=== PATIENT | female | born 1990 | race Caucasian/White ===

== ENCOUNTER 2019-02-13 09:26 | Outpatient (CLI) | payer OTHER ==
[2019-02-13 11:23] LABS: Basophils % (A) 0 %; Eosinophils # (A) 0.2 k/uL (0-0.7); Eosinophils % (A) 2 %; HCT 35.3 % (34.0-46.0); HGB 11.1 gm/dL (11.4-16.0); Hypochromasia Slight; Lymphocytes # (A) 1.6 k/uL (1.0-4.8); Lymphocytes % (A) 16 %; MCH 20.5 pg (25.0-35.0); MCHC 31.4 g/dL (31.0-37.0); MCV 65.3 fL (80.0-100.0); Mean Platelet Volume 5.8; Microcytosis Marked; Monocytes # (A) 0.6 k/uL (0-1.0); Monocytes % (A) 6 %; Neutrophils # (A) 7.3 k/uL (1.3-7.7); Neutrophils % (A) 75 %; Platelet Count 286 k/uL (150-450); RBC 5.41 m/uL (3.80-5.40); RDW 14.6 % (11.5-15.5); WBC 9.8 k/uL (3.8-10.6)
[2019-02-13 11:42] LABS: Uric Acid 5.1 mg/dL (3.7-7.4)
== END 2019-02-13 12:31 | disposition home or self-care (01) ==
LOC: FBPOP 09:26
PROVIDERS: ATTEND Obstetrics & Gynecology
DX: O26.893 Other specified pregnancy related conditions, third trimester (principal); Z3A.37 37 weeks gestation of pregnancy
CPT/HCPCS: 59025; 84112; 84450; 84460; 84550; 85025; G0463; 99215

== ENCOUNTER → 2019-02-15 | Outpatient (CLI) | payer OTHER | END | disposition home or self-care (01) | LOC: LABWHC1 12:19 | PROVIDERS: ATTEND Obstetrics & Gynecology | DX: O13.9 Gestational [pregnancy-induced] hypertension without significant proteinuria, unspecified trimester (principal) | CPT/HCPCS: 36415; 82575 ==

== ENCOUNTER 2019-02-18 18:30 | Inpatient (IN) | payer OTHER ==
[~2019-02-18 18:30] MED LIST: ROPIVACAINE 5MG/ML 20ML VIAL ONE; SODIUM CHLORIDE 0.9% 100 ML BAG ONE; fentaNYL (PF) 50 MCG/ML 5 ML AMP ONE
[2019-02-18] MEDS ORDERED: DINOPROSTONE 10 MG INSERT.ER VAGINAL ONE (19:39)
[2019-02-18] MEDS ORDERED: BUTORPHANOL 1 MG/ML 1 ML VIAL IV PRN (19:39)
[2019-02-18] MEDS ORDERED: ZOLPIDEM 5 MG TAB PO PRN (19:39)
[2019-02-18] MEDS ORDERED: CARBOPROST TROMETHAMINE 250 MCG/ML 1 ML AMP IM PRN (20:01)
[2019-02-18] MEDS ORDERED: LIDOCAINE 0.5% (PF) 5 MG/ML (50 ML SDV) SQ PRN (20:01)
[2019-02-18] MEDS ORDERED: METHYLERGONOVINE 0.2 MG/ML 1 ML AMP IM PRN (20:01)
[2019-02-18] MEDS ORDERED: TERBUTALINE 1 MG/ML VIAL SQ PRN (20:01)
[2019-02-18] MEDS ORDERED: OXYTOCIN 10 UNIT/ML 1 ML VIAL IM PRN (20:01)
--- NOTE | 2019-02-18 20:14 | P.HPOB ---
History of Present Illness H&P Date: 02/18/19 Chief Complaint: 37-4/7 weeks, preeclampsia The patient is a 28-year-old rubber 1 para 0 admitted at 37-4/7 weeks by last menstrual period and confirmed by 19 week ultrasound. She is admitted with recent significantly increasing blood pressures and otherwise normal laboratory workup. She was found in the office today to have a blood pressure in the range of 148/94. Nonstress testing is entirely reassuring. Her cervix has been found to be unfavorable at 1 cm dilation, 50% effacement, with the vertex in presentation at -3 station. Her has, to this point, been otherwise uncomplicated and group B strep status is negative. She did have an ultrasound demonstrating growth at the 50th percentile around 35 weeks of gestation. Obstetrical history: 1 para 0 with current statistics listed above. EDC of 03/06/2019 was established by last menstrual period and confirmed by 19 week ultrasound. Laboratory workup demonstrates a blood type of B+ with a negative antibody screen. Rubella status is immune. The remainder of the laboratory workup was within normal limits. One hour Glucola was normal and group B strep status is negative. Gynecologic history: Unremarkable with no history of any infections to include STDs. Review of Systems Review of systems is confined to history of present illness. Past Medical History Past Medical History: Hypertension Additional Past Medical History / Comment(s): Anemia History of Any Multi-Drug Resistant Organisms: None Reported Additional Past Surgical History / Comment(s): [place] teeth removal Past Anesthesia/Blood Transfusion Reactions: No Reported Reaction Past Psychological History: No Psychological Hx Reported Smoking Status: Former smoker Past Alcohol Use History: None Reported Past Drug Use History: None Reported - Past Family History Mother Family Medical History: Chest Pain / Angina, CVA/TIA, Diabetes Mellitus, Hyperlipidemia, Hypertension, Renal Disease Medications and Allergies Home Medications Medication Instructions Recorded Confirmed Type Iron 18 mg PO HS 02/13/19 02/18/19 History Pnv No.95/Ferrous Fum/Folic AC 1 each PO HS 02/13/19 02/18/19 History [ Multivitamin Tablet] Allergies Allergy/AdvReac Type Severity Reaction Status Date / Time No Known Allergies Allergy Verified 02/18/19 19:19 Exam Vital Signs Temp Pulse Resp BP Pulse Ox 02/18/19 19:18 98.7 F 105 H 16 175/93 99 Intake and Output 02/18/19 02/18/19 02/18/19 06:59 14:59 22:59 Other: Weight 99.79 kg In general, this is a well-developed, well-nourished white female in no acute distress. Her heart has a regular rhythm and rate without murmur. Her lungs are clear to auscultation bilaterally in all thomas. Her abdomen is gravid, nondistended, has normal active bowel sounds, soft, nontender, and without any palpable masses aside from the uterine fundus. Her extremities are without any cyanosis, clubbing, or significant edema and are nontender to palpation bilate rally. Digital cervical examination on straights her cervix to be 1 cm dilated, 50% effaced, the vertex in presentation at -3 station. Assessment and Plan (1) induced hypertension Current Visit: Yes Status: Acute Code(s): O13.9 - GESTATIONAL HTN W/O SIGNIFICANT PROTEINURIA, UNSP TRIMESTER SNOMED Code(s): 63473793 (2) Term Current Visit: Yes Status: Acute Code(s): Z34.90 - ENCNTR FOR SUPRVSN OF NORMAL , UNSP, UNSP TRIMESTER SNOMED Code(s): 73628753 Plan: The patient is admitted for induction of labor. As her cervix is unfavorable, she has had a Cervidil placed in the posterior fornix for cervical ripening with the intention of Pitocin augmentation or induction to begin tomorrow morning as needed. The risks and complications of the procedure including the risk for hyperstimulation have been thoroughly discussed. She has understood this and agreed to proceed. Additionally, I will draw labs for preeclampsia to include liver function tests, platelet count, uric acid, as well as PT and PTT. She is a good candidate for either IV or epidural analgesia pending the outcome of labs. Close attention will be paid her blood pressures and they will be managed as needed.
[2019-02-18] MEDS: LACTATED RINGERS 1,000 ML IV SCH (20:15)
[2019-02-18 20:57] LABS: Basophils % (A) 0 %; Eosinophils # (A) 0.2 k/uL (0-0.7); Eosinophils % (A) 2 %; HCT 35.7 % (34.0-46.0); Hypochromasia Slight; Lymphocytes # (A) 1.7 k/uL (1.0-4.8); Lymphocytes % (A) 14 %; MCH 20.1 pg (25.0-35.0); MCHC 30.9 g/dL (31.0-37.0); MCV 65.2 fL (80.0-100.0); Microcytosis Marked; Monocytes # (A) 0.7 k/uL (0-1.0); Monocytes % (A) 5 %; Neutrophils # (A) 9.2 k/uL (1.3-7.7); Neutrophils % (A) 77 %; Platelet Count 244 k/uL (150-450); RBC 5.48 m/uL (3.80-5.40); RDW 14.8 % (11.5-15.5)
[2019-02-18 21:07] LABS: Uric Acid 5.5 mg/dL (3.7-7.4)
[2019-02-18 21:19] LABS: INR 0.8 (<1.2); Partial Thromboplastin Time 22.6 sec (22.0-30.0); Prothrombin Time 9.4 sec (9.0-12.0)
[2019-02-18] MEDS ORDERED: LABETALOL 200 MG TAB PO STA (22:48)
[2019-02-18] MEDS ORDERED: LABETALOL 100 MG TAB PO STA (22:57)
[2019-02-19] MEDS: OXYTOCIN 30 UNITS/500 ML NS 30 UNIT in SALINE 1 500ML.BAG IV SCH (06:38)
[2019-02-19] MEDS ORDERED: LABETALOL 100 MG TAB PO STA ×2 (07:35→19:16)
[2019-02-19] MEDS: LACTATED RINGERS 1,000 ML IV SCH ×3 (09:36→22:20)
[2019-02-19] MEDS ORDERED: SIMETHICONE 80 MG CHEWABLE PO PRN (22:16)
[2019-02-19] MEDS ORDERED: HYDROcodone/APAP 5-325MG 1 EACH TAB PO PRN (22:16)
[2019-02-19] MEDS ORDERED: HYDROcodone/APAP 7.5-325MG 1 EACH TAB PO PRN (22:16)
[2019-02-19] MEDS ORDERED: BENZOCAINE/MENTHOL SPRAY 1 GM/SPRAY AEROSOL TOPICAL PRN (22:16)
[2019-02-19] MEDS ORDERED: WITCH HAZEL 1 EACH MED..PAD TOPICAL PRN (22:16)
[2019-02-19] MEDS ORDERED: LANOLIN CREAM 5 GM TUBE TOPICAL PRN (22:16)
[2019-02-19] MEDS ORDERED: HYDROCORTISONE 2.5% RECTAL CREAM 30 GM TUBE RECTAL PRN (22:16)
[2019-02-19] MEDS ORDERED: diphenhydrAMINE 25 MG CAP PO PRN (22:16)
[2019-02-19] MEDS ORDERED: diphenhydrAMINE 50 MG/ML 1 ML VIAL IVP PRN ×2 (22:16)
[2019-02-19] MEDS ORDERED: ACETAMINOPHEN TAB 325 MG TAB PO PRN (22:16)
[2019-02-19] MEDS ORDERED: IBUPROFEN 600 MG TAB PO PRN (22:16)
[2019-02-19] MEDS ORDERED: diphenhydrAMINE 50 MG CAP PO PRN (22:16)
--- NOTE | 2019-02-19 22:23 | P.PROBDLV ---
Vaginal Delivery Note - . Vaginal Delivery Note: The patient is a 28-year-old 1 para 0 admitted initially at 37-4/7 weeks for cervical ripening secondary to an unfavorable cervix in the face of fairly significant increasing induced hypertension with no evidence of superimposed preeclampsia. Her had been uncomplicated until the recent onset of increasing blood pressures and was found in the office with blood pressures in the range of mid 140s to 160s over 90-100. Given the fact that she was full-term, the option was taken to affect delivery. She was brought to the hospital where a Cervidil was placed and left in place overnight. She did make adequate cervical change to allow for artificial rupture of membranes for clear fluid after having started Pitocin augmentation. She made fairly slow progress through the latent phase of labor and had an epidural catheter placed around the onset of the active phase of labor. She continued to make initially fairly slow progress but the fetus was thought to be in a slight malposition. At approximately 7 cm of dilation, she then progressed fairly quickly to complete and pushed over the course of approximately 1 hour to a normal spontaneous vaginal delivery of a viable 7 lbs. 4 oz. baby boy with Apgars of 8 at 1 minute and 9 at 5 minutes delivered in the right occiput anterior position. The placenta was delivered spontaneously, intact, and grossly normal with a grossly normal three-vessel cord inserted approximate 3 cm from the margin of the placental disc. She did require 3 doses of labetalol 100 mg orally from the beginning of her cervical ripening through the course of her labor to control blood pressures. There was a second-degree midline perineal laceration which was noted and repaired in standard fashion using 3-0 chromic catgut without difficulty. Estimated blood loss for the case was approximate 400 mL. There were no complications. All sponge, instrument, and needle counts were correct. Both mother and infant are resting comfortably in recovery.
[2019-02-19] MEDS ORDERED: OXYTOCIN 20 UNITS/1000 ML NS 1,000 ML IV SCH (23:00)
[2019-02-20] MEDS: OXYTOCIN 30 UNITS/500 ML NS 30 UNIT in SALINE 1 500ML.BAG IV SCH (02:24)
[2019-02-20] MEDS: SENNOSIDES-DOCUSATE SODIUM 1 EACH TAB PO SCH (07:42)
[2019-02-20 08:24] LABS: Basophils % (A) 0 %; Eosinophils # (A) 0.1 k/uL (0-0.7); Eosinophils % (A) 1 %; HCT 24.1 % (34.0-46.0); Lymphocytes # (A) 2.3 k/uL (1.0-4.8); Lymphocytes % (A) 13 %; MCH 21.2 pg (25.0-35.0); MCHC 33.1 g/dL (31.0-37.0); Microcytosis Marked; Monocytes % (A) 5 %; Neutrophils # (A) 14.9 k/uL (1.3-7.7); Neutrophils % (A) 80 %; Platelet Count 283 k/uL (150-450); RBC 3.77 m/uL (3.80-5.40); RDW 14.9 % (11.5-15.5); WBC 18.6 k/uL (3.8-10.6)
--- NOTE | 2019-02-20 11:30 | P.PNOBGVD ---
Subjective - Subjective Patient reports: Reports appetite normal, Reports voiding normally, Reports pain well controlled, Reports ambulating normally : doing well, nursing well Objective - Latest Vital Signs Latest vital signs: Vital Signs Temp Pulse Resp BP Pulse Ox 02/20/19 08:00 98.8 F 103 H 15 155/73 97 02/20/19 04:00 98.8 F 107 H 16 126/70 96 02/20/19 00:05 99.1 F 89 15 135/66 02/19/19 23:35 98.9 F 106 H 15 138/74 02/19/19 23:05 99.0 F 106 H 16 139/65 02/19/19 22:50 110 H 16 134/69 02/19/19 22:35 110 H 16 139/74 02/19/19 22:20 99.5 F 112 H 16 126/66 02/19/19 22:05 98.3 F 114 H 16 127/70 Intake and Output 02/19/19 02/20/19 02/20/19 22:59 06:59 14:59 Other: # Voids 1 - Exam Extremities: Present: normal, edema (1+ bilateral lower extremity edema to mid calf) Abdomen: Present: normal appearance, soft Uterus: Present: normal, firm (The uterine fundus is tonic and nontender below the umbilicus.) - Labs Labs: Abnormal Lab Results - Last 24 Hours (Table) 02/20/19 Range/Units 07:50 WBC 18.6 H (3.8-10.6) k/uL RBC 3.77 L (3.80-5.40) m/uL Hgb 8.0 L D (11.4-16.0) gm/dL Hct 24.1 L (34.0-46.0) % MCV 64.0 L (80.0-100.0) fL MCH 21.2 L (25.0-35.0) pg Neutrophils # 14.9 H (1.3-7.7) k/uL Assessment and Plan (1) induced hypertension Current Visit: Yes Status: Acute Code(s): O13.9 - GESTATIONAL HTN W/O SIGNIFICANT PROTEINURIA, UNSP TRIMESTER SNOMED Code(s): 41636664 (2) Term Current Visit: Yes Status: Acute Code(s): Z34.90 - ENCNTR FOR SUPRVSN OF NORMAL , UNSP, UNSP TRIMESTER SNOMED Code(s): 28128623 (3) Normal spontaneous vaginal delivery Current Visit: Yes Status: Acute Code(s): O80 - ENCOUNTER FOR FULL-TERM UNCOMPLICATED DELIVERY SNOMED Code(s): 75771663 Plan: Continue routine care. Blood pressures have remained in a range that does not require further treatment at this time. I will however keep her in the hospital for another 24 hours to further monitor her blood pressures prior to discharge given the degree of lability noted during labor. I would anticipate discharge home tomorrow.
[2019-02-21] MEDS: SENNOSIDES-DOCUSATE SODIUM 1 EACH TAB PO SCH ×2 (02:11→13:04)
[2019-02-21 10:09] VITALS: PULSE 110; RESP 18
[2019-02-21 10:10] VITALS: BP 150/96; TEMP 98.4
--- NOTE | 2019-02-21 11:08 | P.DS ---
Providers Date of admission: 02/18/19 18:59 Expected date of discharge: 02/21/19 Attending physician: Rigoberto Herrera Primary care physician: Stated None - Discharge Diagnosis(es) (1) induced hypertension Current Visit: Yes Status: Acute (2) Term Current Visit: Yes Status: Acute (3) Normal spontaneous vaginal delivery Current Visit: Yes Status: Acute Hospital Course: The patient is a 28-year-old 1 para 0 admitted at 37-4/7 weeks by good dating parameters. She is admitted for Cervidil cervical ripening secondary to an unfavorable cervix in the face of -induced hypertension. She had Cervidil placed and did have enough cervical change to allow for an official rupture of membranes the following morning at which time Pitocin augmentation was also started. She made progress through the course of labor relatively slow fashion but ultimately did progress to complete where after she pushed to a normal spontaneous vaginal delivery of a viable 7 lbs. 4 oz. baby boy with Apgars of 8 at 1 minute and 9 at 5 minutes. Her course was unremarkable with vital signs remaining stable and her temperature was afebrile throughout. Blood pressures remained in an area that was not deemed treatable. She therefore was discharged home on day #2 to follow-up in the office in 6 weeks' time routinely. Discharge instructions included calling for any significantly increased bleeding or foul-smelling lochia, significantly increased fever abdominal pain, perineal complaints, breast complaints, or anything else that concerned her. She was additionally instructed to have nothing in the vagina for at least 6 weeks time to include intercourse. She understood her instructions and agrees to follow up as noted above. Discharge medications included only [id number] analgesic pain medications as well as continued vitamins as she has opted to breast-feed. Maternal blood type is B+ and rubella status is immune. Plan - Discharge Summary New Discharge Prescriptions: No Action Pnv No.95/Ferrous Fum/Folic AC [ Multivitamin Tablet] 1 each PO HS Iron 18 mg PO HS Discharge Medication List Iron 18 mg PO HS 02/13/19 [History] Pnv No.95/Ferrous Fum/Folic AC [ Multivitamin Tablet] 1 each PO HS 02/13/19 [History] Follow up Appointment(s)/Referral(s): Rigoberto Herrera MD [STAFF PHYSICIAN] - 6 Weeks Discharge Disposition: HOME SELF-CARE
== END 2019-02-21 12:15 | disposition home or self-care (01) | DRG 807 ==
LOC: 4FBP 18:59
PROVIDERS: ADMIT Obstetrics & Gynecology; ATTEND Obstetrics & Gynecology
PROC: 3E0P7VZ Introduction of Hormone into Female Reproductive, Via Natural or Artificial Opening (ICD-10-PCS; 2019-02-18)
PROC: 10E0XZZ Delivery of Products of Conception, External Approach (ICD-10-PCS; principal; 2019-02-19)
PROC: 0KQM0ZZ Repair Perineum Muscle, Open Approach (ICD-10-PCS; 2019-02-19)
PROC: 00HU33Z Insertion of Infusion Device into Spinal Canal, Percutaneous Approach (ICD-10-PCS; 2019-02-19)
PROC: 3E0R3BZ Introduction of Anesthetic Agent into Spinal Canal, Percutaneous Approach (ICD-10-PCS; 2019-02-19)
DX: O13.4 Gestational [pregnancy-induced] hypertension without significant proteinuria, complicating childbirth (principal); Z37.0 Single live birth; O70.1 Second degree perineal laceration during delivery; Z3A.37 37 weeks gestation of pregnancy; Z87.891 Personal history of nicotine dependence; Z83.3 Family history of diabetes mellitus; Z82.49 Family history of ischemic heart disease and other diseases of the circulatory system; Z82.3 Family history of stroke; Z84.1 Family history of disorders of kidney and ureter
CPT/HCPCS: 84450; 84460; 84550; 85025; 85610; 85730; 86850; 86900; 86901; 88307

== ENCOUNTER → 2021-07-19 | Outpatient (CLI) | payer OTHER ==
--- NOTE | 2021-07-20 07:51 | CA ---
Transthoracic Echo Report Name: Kailyn Garcia Age: 30 Gender: F : 1990 Exam Date: 07/19/2021 15:37 Exam Location: [facility] Ht (in): 66 Wt (lb): 189 Ordering Physician: Nelson Rosales MD Attending/Referring Phys: Nelson Rosales MD Ict Educator Mirela Dennis RDCS Procedure CPT: Indications: I10 HTN Cardiac Hx: No cardiac Hx Technical Quality: Good Contrast 1: Total Dose (mL): Contrast 2: Total Dose (mL): MEASUREMENTS (Male / Female) Normal Values 2D ECHO LV Diastolic Diameter PLAX 3.8 cm 4.2 - 5.9 / 3.9 - 5.3 cm LV Systolic Diameter PLAX 2.7 cm IVS Diastolic Thickness 1.0 cm 0.6 - 1.0 / 0.6 - 0.9 cm LVPW Diastolic Thickness 1.0 cm 0.6 - 1.0 / 0.6 - 0.9 cm LV Relative Wall Thickness 0.5 RV Internal Dim ED PLAX 2.9 cm LA Systolic Diameter LX 2.3 cm 3.0 - 4.0 / 2.7 - 3.8 cm LA Volume 29.0 cm??? 18 - 58 / 22 - 52 cm??? M-MODE Aortic Root Diameter MM 2.7 cm MV E Point Septal Separation 0.4 cm AV Cusp Separation MM 2.4 cm DOPPLER AV Peak Velocity 159.4 cm/s AV Peak Gradient 10.2 mmHg MV Area PHT 3.9 cm??? Mitral E Point Velocity 97.1 cm/s Mitral A Point Velocity 123.0 cm/s Mitral E to A Ratio 0.8 MV Deceleration Time 195.9 ms MV E' Velocity 14.7 cm/s Mitral E to MV E' Ratio 6.6 FINDINGS Left Ventricle Left ventricular ejection fraction is estimated at 60-65 %. Normal Left ventricular size, wall thickness, systolic function with no obvious regional wall motion abnormalities. Normal Left ventricular diastolic filling pattern. Right Ventricle Normal right ventricular size and function. Right Atrium Normal right atrial size. Left Atrium Normal left atrial size. Mitral Valve Structurally normal mitral valve. No mitral stenosis, regurgitation or prolapse. Aortic Valve Trileaflet aortic valve. Tricuspid Valve Structurally normal tricuspid valve. Pulmonic Valve Trace pulmonic regurgitation. Pericardium Normal pericardium. Aorta Normal size aortic root and proximal ascending aorta. CONCLUSIONS Normal LV systolic function. Normal valves Previewed by: Dr. Sharath Ponce MD (Electronically Signed) Final Date: 20 Jul 2021 07:50
== END | disposition home or self-care (01) ==
LOC: RADECHMAIN 15:33
PROVIDERS: ATTEND Family Medicine
DX: I10 Essential (primary) hypertension (principal)
CPT/HCPCS: 93306

== ENCOUNTER → 2022-07-21 | Outpatient (CLI) | payer OTHER ==
[2022-07-21 21:25] LABS: T4, Free (Free Thyroxine) 1.51 ng/dL (0.800-1.800)
== END | disposition home or self-care (01) ==
LOC: LABWHC1 07-20 13:02
PROVIDERS: ATTEND Internal Medicine Endocrinology, Diabetes & Metabolism
DX: E03.9 Hypothyroidism, unspecified (principal)
CPT/HCPCS: 36415; 84439; 84443; 84480

== ENCOUNTER → 2022-09-19 | Outpatient (CLI) | payer OTHER ==
[2022-09-20 03:12] LABS: Blood Urea Nitrogen 6.8 mg/dL (9.0-27.0); Calcium 9.3 mg/dL (8.7-10.3); Carbon Dioxide 21.8 mmol/L (21.6-31.8); Chloride 104 mmol/L (96-109); Glucose 69 mg/dL (70-110); Potassium 4.1 mmol/L (3.5-5.5); Sodium 137 mmol/L (135-145); T4, Free (Free Thyroxine) 1.25 ng/dL (0.80-1.80)
[2022-09-20 03:41] LABS: HCT 32.2 % (37.2-46.3); HGB 9.8 d/dL (12.0-15.0); MCH 19.5 pg (27.0-32.0); MCHC 30.4 d/dL (32.0-37.0); Mean Platelet Volume 10.3 FL (9.5-12.2); NRBC Per 100 WBC 0 X 10*3/uL (0.00-0.01); Platelet Count 345 X 10*3/uL (140-440); RBC 5.03 X 10*6/uL (4.10-5.20); WBC 10.04 X 10*3/uL (4.50-10.00)
== END | disposition home or self-care (01) ==
LOC: LABWHC1 14:55
PROVIDERS: ATTEND Internal Medicine Endocrinology, Diabetes & Metabolism
DX: E03.9 Hypothyroidism, unspecified (principal)
CPT/HCPCS: 36415; 80048; 82306; 82607; 84439; 84443; 84480; 85027

== ENCOUNTER → 2022-10-25 | Outpatient (CLI) | payer OTHER ==
--- NOTE | 2022-10-25 14:52 | US ---
EXAMINATION TYPE: US thyroid st tissue head/neck DATE OF EXAM: 10/25/2022 COMPARISON: NONE CLINICAL INDICATION: Female, 32 years old with history of E03.9; Hashimotos, on thyroid medication GLAND SIZE: Right Lobe: 6.0 x 1.9 x 2.5 cm Overall Parenchyma: diffusely heterogeneous Left Lobe: 5.2 x 1.1 x 1.9 cm Overall Parenchyma: diffusely heterogeneous Isthmus Thickness: 0.3 cm NODULES RIGHT: # of nodules measured on right: 0 LEFT: # of nodules measured on left: 0 ISTHMUS: # of nodules measured in the isthmus: 0 Bilateral neck scanned, no evidence of lymphadenopathy. IMPRESSION: Diffuse glandular heterogeneity without distinct solid or cystic nodule at this time. 2017 ACR TI-RADS LEVEL: *Highest TI-RADS level nodule reported
== END | disposition home or self-care (01) ==
LOC: RADUSWWP 14:23
PROVIDERS: ATTEND Internal Medicine Endocrinology, Diabetes & Metabolism
DX: E03.9 Hypothyroidism, unspecified (principal)
CPT/HCPCS: 76536

== ENCOUNTER → 2022-10-25 | Outpatient (CLI) | payer OTHER ==
[2022-10-25 20:56] LABS: T4, Free (Free Thyroxine) 1.25 ng/dL (0.80-1.80)
== END | disposition home or self-care (01) ==
LOC: LABWHC1 14:41
PROVIDERS: ATTEND Internal Medicine Endocrinology, Diabetes & Metabolism
DX: E03.9 Hypothyroidism, unspecified (principal)
CPT/HCPCS: 36415; 82306; 84439; 84443; 86376

== ENCOUNTER → 2023-01-24 | Outpatient (CLI) | payer OTHER ==
[2023-01-24 18:59] LABS: Basophils # (A) 0.02 X 10*3/uL (0.00-0.10); Basophils % (A) 0.2 %; Eosinophils # (A) 0.09 X 10*3/uL (0.04-0.35); Eosinophils % (A) 0.9 %; HCT 35.6 % (37.2-46.3); HGB 10.8 d/dL (12.0-15.0); Lymphocytes # (A) 2.87 X 10*3/uL (0.90-5.00); Lymphocytes % (A) 28.7 %; MCH 19.9 pg (27.0-32.0); MCHC 30.3 d/dL (32.0-37.0); MCV 65.6 FL (80.0-97.0); Mean Platelet Volume 10.7 FL (9.5-12.2); NRBC Per 100 WBC 0 X 10*3/uL (0.00-0.01); Neutrophils # (A) 6.26 X 10*3/uL (1.80-7.70); Neutrophils % (A) 62.7 %; Platelet Count 322 X 10*3/uL (140-440); RBC 5.43 X 10*6/uL (4.10-5.20); RDW 15.4 % (11.5-14.5); WBC 9.99 X 10*3/uL (4.50-10.00)
[2023-01-25 01:01] LABS: T4, Free (Free Thyroxine) 1.04 ng/dL (0.80-1.80)
== END | disposition home or self-care (01) ==
LOC: LABWHC1 14:52
PROVIDERS: ATTEND Internal Medicine Endocrinology, Diabetes & Metabolism
DX: E03.9 Hypothyroidism, unspecified (principal); E55.9 Vitamin D deficiency, unspecified
CPT/HCPCS: 36415; 82306; 83036; 84439; 84443; 84480; 85025

== ENCOUNTER 2023-01-25 10:23 | Outpatient (CLI) | payer OTHER ==
[2023-01-25 11:36] LABS: Appearance,Urine Clear (Clear); Bilirubin,Urine Negative (Negative); Blood,Urine Negative (Negative); Color,Urine Colorless; Glucose,Urine (UA) Negative (Negative); Ketones,Urine Negative (Negative); Leukocyte Esterase,Urine Negative (Negative); Nitrite,Urine Negative (Negative); Protein,Urine Negative (Negative); Specific Gravity,Urine 1.005 (1.001-1.035); Urobilinogen,Urine <2.0 mg/dL (<2.0)
[2023-01-25 11:55] VITALS: BP 149/72; PULSE 110; RESP 16; TEMP 98.8
[2023-01-25 13:00] LABS: Basophils % (A) 0 %; Eosinophils # (A) 0.1 k/uL (0-0.7); Eosinophils % (A) 1 %; HCT 36.2 % (34.0-46.0); HGB 11.9 gm/dL (11.4-16.0); Hypochromasia Slight; Lymphocytes # (A) 2.4 k/uL (1.0-4.8); Lymphocytes % (A) 23 %; MCH 21.3 pg (25.0-35.0); MCHC 32.9 g/dL (31.0-37.0); MCV 64.9 fL (80.0-100.0); Mean Platelet Volume 6.9; Microcytosis Marked; Monocytes # (A) 0.5 k/uL (0-1.0); Monocytes % (A) 4 %; Neutrophils # (A) 7.5 k/uL (1.3-7.7); Neutrophils % (A) 70 %; Platelet Count 283 k/uL (150-450); RBC 5.58 m/uL (3.80-5.40); RDW 15.3 % (11.5-15.5); WBC 10.6 k/uL (3.8-10.6)
[2023-01-25 13:11] LABS: ALT 20 U/L (4-34); AST 31 U/L (14-36); African American GFR (CKD) >90 (>60 ml/min/1.73 sqM); Blood Urea Nitrogen 4 mg/dL (7-17); LDH 191 U/L (120-246); Non-African American GFR(CKD) >90 (>60 ml/min/1.73 sqM)
--- NOTE | 2023-01-25 14:01 | US ---
EXAMINATION TYPE: US OB limited DATE OF EXAM: 01/25/2023 COMPARISON: NONE CLINICAL INDICATION: Female, 32 years old with history of BARNEY; h/o polyhydramnios EXAM PERFORMED: OB limited GESTATIONAL AGE / DATING Physician Established: (37 weeks/6 days) EDC: 02/09/2023 No growth performed on today?s study per ordering physician SURVEY BARNEY: 31 and 30 cm Polyhydramnios (normal 6.51-26.99) PRESENTATION: Vertex LIE: Longitudinal HEART RATE: 141 bpm RHYTHM: Normal IMPRESSION: Imaging confirms polyhydramnios with BARNEY measured at 30 and 31 cm.
[2023-01-25 14:05] LABS: Creatinine,Urine Random 34.9 mg/dL; Protein/Creatinine Ratio,Urine 0.401
== END 2023-01-25 14:45 | disposition home or self-care (01) ==
LOC: FBPOP 10:23
PROVIDERS: ATTEND Obstetrics & Gynecology
DX: O10.013 Pre-existing essential hypertension complicating pregnancy, third trimester (principal); O76 Abnormality in fetal heart rate and rhythm complicating labor and delivery; O40.3XX1 Polyhydramnios, third trimester, fetus 1; Z3A.37 37 weeks gestation of pregnancy; Z87.891 Personal history of nicotine dependence
CPT/HCPCS: 59025; 76815; 81003; 82565; 82570; 83615; 84156; 84450; 84460; 84520; 84550; 85025

== ENCOUNTER 2023-01-25 17:35 | Inpatient (IN) | payer OTHER ==
[2023-01-25] MEDS ORDERED: DINOPROSTONE 10 MG INSERT.ER VAGINAL ONE (18:00)
[2023-01-26] MEDS ORDERED: miSOPROStoL 200 MCG TAB PO PRN (04:05)
[2023-01-26] MEDS ORDERED: METHYLERGONOVINE 0.2 MG/ML 1 ML AMP IM PRN (04:05)
[2023-01-26] MEDS ORDERED: LIDOCAINE 0.5% (PF) 5 MG/ML (50 ML SDV) SQ PRN (04:05)
[2023-01-26] MEDS ORDERED: TERBUTALINE 1 MG/ML VIAL SQ PRN (04:05)
[2023-01-26] MEDS ORDERED: CARBOPROST TROMETHAMINE 250 MCG/ML 1 ML AMP IM PRN (04:05)
[2023-01-26] MEDS ORDERED: OXYTOCIN 10 UNIT/ML 1 ML VIAL IM PRN (04:05)
[2023-01-26] MEDS ORDERED: TRANEXAMIC 1,000 MG/100ML-NACL 1,000 MG in EMPTY BAG 1 BAG IV PRN (04:05)
[2023-01-26] MEDS ORDERED: OXYTOCIN 30 UNITS/500 ML NS 30 UNIT in SALINE 1 500ML.BAG IV SCH (04:15)
[2023-01-26] MEDS: LACTATED RINGERS 1,000 ML IV SCH ×2 (06:00→09:40)
[2023-01-26 06:21] LABS: Basophils % (A) 0 %; Eosinophils # (A) 0.1 k/uL (0-0.7); Eosinophils % (A) 1 %; HCT 36.8 % (34.0-46.0); HGB 11.7 gm/dL (11.4-16.0); Lymphocytes # (A) 2.8 k/uL (1.0-4.8); Lymphocytes % (A) 22 %; MCH 20.7 pg (25.0-35.0); MCHC 31.9 g/dL (31.0-37.0); Mean Platelet Volume 7.2; Microcytosis Marked; Monocytes # (A) 0.7 k/uL (0-1.0); Monocytes % (A) 5 %; Neutrophils # (A) 9.3 k/uL (1.3-7.7); Neutrophils % (A) 71 %; Platelet Count 293 k/uL (150-450); Poikilocytosis Slight; RBC 5.66 m/uL (3.80-5.40); RDW 15.4 % (11.5-15.5); WBC 13.1 k/uL (3.8-10.6)
--- NOTE | 2023-01-26 08:20 | P.HPOB ---
History of Present Illness H&P Date: 01/26/23 Chief Complaint: Chronic hypertension with superimposed pre-eclampsia w/o severe features Ms. Garcia is a 32 year old at 37 weeks and 6 days with EDC of 02/10/2023 (by LMP consistent with 11 week US) who presents to labor and delivery for medical induction of labor for chronic hypertension with superimposed pre-eclampsia without severe features. The patient has had hypertensive blood pressures throughout the with elevated blood pressures at 12, 14, and 20 weeks gestation. She was sent to triage yesterday for PIH labs given blood pressures of 140s/70s yesterday in the office. PIH labs were significant for a protein to creatinine ratio of 0.4. Additionally, the fetus had recurrent variable decelerations on NST in the office yesterday. BARNEY on US was 30. Given these findings, the decision was made to proceed with medical induction of labor. On a 36 week and 4 day ultrasound, the fetus was measuring in the 82%ile for weight at 7 pounds and 4 ounces. The fetus is expected to weigh approximately 7 pounds and 12 ounces today. Obstetric history: 1 FTVD induced for pre-eclampsia work-up: B positive, antibody negative, rubella immune, VDRL non- reactive, HBsAg negative, HIV negative, gonorrhea negative, chlamydia negative, 1 hour GTT within normal limits, GBS negative. Past medical history: Beta thalessemia trait, chronic hypertension, eczema, Rafael's disease Past Medical History Past Medical History: Hypertension Additional Past Medical History / Comment(s): Anemia History of Any Multi-Drug Resistant Organisms: None Reported Additional Past Surgical History / Comment(s): [place] teeth removal Past Anesthesia/Blood Transfusion Reactions: No Reported Reaction Past Psychological History: No Psychological Hx Reported Smoking Status: Never smoker Past Alcohol Use History: None Reported Past Drug Use History: None Reported - Past Family History Mother Family Medical History: Chest Pain / Angina, CVA/TIA, Diabetes Mellitus, Hyperlipidemia, Hypertension, Renal Disease Medications and Allergies Home Medications Medication Instructions Recorded Confirmed Type Iron 18 mg PO HS 02/13/19 01/25/23 History Pnv No.95/Ferrous Fum/Folic AC 1 each PO HS 02/13/19 01/25/23 History [ Multivitamin Tablet] Levothyroxine Sodium 100 mcg PO DAILY 01/25/23 01/25/23 History Allergies Allergy/AdvReac Type Severity Reaction Status Date / Time No Known Allergies Allergy Verified 01/25/23 10:48 Exam Vital Signs Temp Pulse Resp BP 01/25/23 17:45 98 F 98 16 142/72 Intake and Output 01/25/23 01/26/23 01/26/23 22:59 06:59 14:59 Other: # Voids 2 2 Weight 96.162 kg Focused physical exam is performed. This is a healthy-appearing in no apparent distress. Breathing is non-labored. Abdomen is gravid and non-tender. Cervical exam is 3 cm, 70% effacement, and -2 station after cervical ripening overnight with Cervidil. AROM is undertaken revealing clear fluid. Extremeties non-tender and non-edematous. heart tones are Category I and tocometer is graphing contractions every 1-3 minutes. Results Result Diagrams: 01/26/23 06:00 Abnormal Lab Results - Last 24 Hours (Table) 01/26/23 Range/Units 06:00 WBC 13.1 H (3.8-10.6) k/uL RBC 5.66 H (3.80-5.40) m/uL MCV 65.0 L (80.0-100.0) fL MCH 20.7 L (25.0-35.0) pg Neutrophils # 9.3 H (1.3-7.7) k/uL Assessment and Plan Assessment: 32 year old at 37 weeks and 6 days presenting for mIOL for cHTN with superimposed pre-eclampsia without severe features Plan: Admit, NPO, mIVF, pitocin per protocol, epidural prn. Continuous EFM and tocometer, close monitoring of patient. Anticipate vaginal delivery. Time with Patient: Less than 30
[2023-01-26] MEDS ORDERED: fentaNYL (PF) 50 MCG/ML 5 ML AMP ONE (09:23)
[2023-01-26] MEDS ORDERED: SODIUM CHLORIDE 0.9% 250 ML BAG ONE (09:23)
[2023-01-26] MEDS ORDERED: ROPIVACAINE 5 MG/ML 30 ML VIAL ONE (09:23)
[2023-01-26] MEDS ORDERED: BENZOCAINE/MENTHOL SPRAY 1 GM/SPRAY AEROSOL TOPICAL PRN (13:15)
[2023-01-26] MEDS ORDERED: ACETAMINOPHEN TAB 325 MG TAB PO PRN (13:15)
[2023-01-26] MEDS ORDERED: diphenhydrAMINE 25 MG CAP PO PRN (13:15)
[2023-01-26] MEDS ORDERED: HYDROCORTISONE 2.5% RECTAL CREAM 30 GM TUBE RECTAL PRN (13:15)
[2023-01-26] MEDS ORDERED: diphenhydrAMINE 50 MG/ML 1 ML VIAL IVP PRN ×2 (13:15)
[2023-01-26] MEDS ORDERED: diphenhydrAMINE 50 MG CAP PO PRN (13:15)
[2023-01-26] MEDS ORDERED: LANOLIN CREAM 5 GM TUBE TOPICAL PRN (13:15)
[2023-01-26] MEDS ORDERED: ZOLPIDEM 5 MG TAB PO PRN (13:15)
[2023-01-26] MEDS ORDERED: SIMETHICONE 80 MG CHEWABLE PO PRN (13:15)
--- NOTE | 2023-01-26 13:15 | P.PROBDLV ---
Vaginal Delivery Note - . Vaginal Delivery Note: DATE OF SERVICE: 01/26/2023 PROCEDURE: Normal Vaginal Delivery ATTENDING: Dr. Abi Ford MD ESTIMATED BLOOD LOSS: 200 mL FINDINGS: VFI, Apgars 8/9. Weight 7 pounds and 10 ounces (3475 grams) PROCEDURE: Mrs. Garcia is a 32 year old at 37 weeks and 6 days presenting to labor and delivery for medical induction of labor for chronic hypertension with superimposed pre-eclampsia without severe features. The has also been complicated by polyhydramnios. For further details, please review the admitting H&P. Cervidil was placed on the evening of 01/25 for cervical ripening. The cervidil was removed at 0500 and pitocin induction was started. AROM was undertaken at 751 revealing clear fluid. heart tones were Category I to Category II throughout active labor with recurrent variable and early decelerations. The heart tones consistently improved with pausing the oxytocin, repositioning the patient, and given fluid boluses. The patient was completely dilated at 1248. After one push she delivered a viable female infant at 1253. The was placed on the maternal abdomen and bulb suctioned. The infant was noted to be spontaneously crying. Cord was clamped and cut after a 30-second delay. The was handed off to the pediatric team. Placenta was delivered whole with gentle cord traction at 1255. Oxytocin was started to facilitate uterine tone. Uterine fundus was found to be firm and below the umbilicus upon fundal massage. Thorough examination of the cervix, vagina, periurethral area, and perineum revealed a small superficial right periurethral laceration that was infiltrated with lidocaine and repaired with 3- 0 Vicryl in a running fashion. The patient is stable and allowed to begin the bonding process.
[2023-01-26] MEDS: IBUPROFEN 600 MG TAB PO PRN (19:17)
[2023-01-26] MEDS: SENNOSIDES-DOCUSATE SODIUM 1 EACH TAB PO SCH (19:17)
[2023-01-27] MEDS: IBUPROFEN 600 MG TAB PO PRN (04:39)
[2023-01-27 06:26] LABS: Basophils % (A) 0 %; Eosinophils # (A) 0.1 k/uL (0-0.7); Eosinophils % (A) 1 %; HCT 29.6 % (34.0-46.0); Lymphocytes # (A) 2.5 k/uL (1.0-4.8); Lymphocytes % (A) 24 %; MCHC 32.4 g/dL (31.0-37.0); MCV 64.9 fL (80.0-100.0); Mean Platelet Volume 6.9; Microcytosis Marked; Monocytes # (A) 0.7 k/uL (0-1.0); Monocytes % (A) 7 %; Neutrophils % (A) 67 %; Platelet Count 225 k/uL (150-450); RBC 4.57 m/uL (3.80-5.40); RDW 15.1 % (11.5-15.5); WBC 10.5 k/uL (3.8-10.6)
[2023-01-27 06:54] LABS: HGB 9.6 gm/dL (11.4-16.0)
[2023-01-27] MEDS: SENNOSIDES-DOCUSATE SODIUM 1 EACH TAB PO SCH (09:04)
[2023-01-27 10:27] VITALS: BP 139/74; PULSE 79; RESP 14; TEMP 98.2
--- NOTE | 2023-01-27 10:38 | P.DS ---
Providers Date of admission: 01/25/23 17:35 Expected date of discharge: 01/27/23 Attending physician: Rigoberto Herrera Primary care physician: Stated None Hospital Course: Ms. Garcia is a 32 year old now PPD#1 s/p medical induction of labor for cHTN with superimposed pre-eclampsia. The patient is doing well this morning and had no acute events overnight. She has no complaints this morning. She reports minimal lochia, passing flatus, voiding without difficulty, ambulating, and eating/drinking without nausea or vomiting. doing well at bedside, nursing well. She denies chest pain, shortness of breathing, fevers, or chills overnight. She denies pain or swelling in the legs. She denies headache, visual disturbances, right upper quadrant pain. Blood pressures have been mostly normotensive with one mild range since deliver <150/90. restrictions are reviewed with the patient including pelvic rest for 6 weeks. The patient is encouraged to call the office if she experiences any heavy bleeding, foul-smelling discharge, breast complaints, or any if she has any other concerns. She will follow up in the office with Dr. Herrera in 1 weeks for blood pressure check. All questions are answered. Assessment: 32 year old PPD#1 s/p mIOL for cHTN w/ SI preE w/o SF Patient Condition at Discharge: Good Plan - Discharge Summary Discharge Rx Participant: No New Discharge Prescriptions: No Action Pnv No.95/Ferrous Fum/Folic AC [ Multivitamin Tablet] 1 each PO HS Iron 18 mg PO HS Levothyroxine Sodium 100 mcg PO DAILY Discharge Medication List Iron 18 mg PO HS 02/13/19 [History] Pnv No.95/Ferrous Fum/Folic AC [ Multivitamin Tablet] 1 each PO HS 02/13/19 [History] Levothyroxine Sodium 100 mcg PO DAILY 01/25/23 [History] Follow up Appointment(s)/Referral(s): Rigoberto Herrera MD [STAFF PHYSICIAN] - 1 Week Activity/Diet/Wound Care/Special Instructions: Instructions 1. Do not begin any exercise program for 3 weeks. 2. Do not resume sexual relations for 6 weeks or longer if uncomfortable. 3. You may take tub baths or showers at any time. 4. You may use tampons if desired after 6 weeks. 5. Keep any areas repaired with stitches clean and dry. 6. If you are not nursing, wear a good fitting, supportive bra during the day and limit fluid intake for at least 1 week to prevent breast engorgement. 7. Call the office, , within the next week to make appointment for your 6 week checkup if it has not already been made. 8. Report any of the following occurrences to the doctor promptly: a. Heavy, excessive bleeding b. Chills, fever c. Burning or frequency of urination d. Pain or redness and breasts if nursing e. Increasing pain or swelling of vulva (stitches). In addition to the above instructions, the following additional should be followed: 1. No heavy lifting or straining (exercising) until after 6 week checkup. 2. Keep abdominal incision clean and dry: You may wear a dressing if more comfortable. 3. Make office appointment for 2 weeks after delivery date. Discharge Disposition: HOME SELF-CARE
== END 2023-01-27 13:00 | disposition home or self-care (01) | DRG 560 ==
LOC: 4FBP 17:35
PROVIDERS: ADMIT Obstetrics & Gynecology; ATTEND Obstetrics & Gynecology
PROC: 3E033VJ Introduction of Other Hormone into Peripheral Vein, Percutaneous Approach (ICD-10-PCS; principal; 2023-01-26)
PROC: 10E0XZZ Delivery of Products of Conception, External Approach (ICD-10-PCS; principal; 2023-01-26)
PROC: 10907ZC Drainage of Amniotic Fluid, Therapeutic from Products of Conception, Via Natural or Artificial Opening (ICD-10-PCS; principal; 2023-01-26)
PROC: 0UQMXZZ Repair Vulva, External Approach (ICD-10-PCS; principal; 2023-01-26)
PROC: 3E0P7VZ Introduction of Hormone into Female Reproductive, Via Natural or Artificial Opening (ICD-10-PCS; principal; 2023-01-26)
DX: O11.4 Pre-existing hypertension with pre-eclampsia, complicating childbirth (principal); O99.284 Endocrine, nutritional and metabolic diseases complicating childbirth; E06.3 Autoimmune thyroiditis; O40.3XX0 Polyhydramnios, third trimester, not applicable or unspecified; O71.82 Other specified trauma to perineum and vulva; O76 Abnormality in fetal heart rate and rhythm complicating labor and delivery; Z37.0 Single live birth; Z3A.37 37 weeks gestation of pregnancy; Z82.49 Family history of ischemic heart disease and other diseases of the circulatory system; Z79.890 Hormone replacement therapy
CPT/HCPCS: 85025; 86850; 86900; 86901

== ENCOUNTER 2023-02-09 12:24 | Emergency (ER) | payer OTHER ==
--- NOTE | 2023-02-09 13:44 | ED ---
ENT HPI - General Chief complaint: ENT Stated complaint: Sinus Pressure Time Seen by Provider: 02/09/23 13:23 Source: patient, RN notes reviewed Mode of arrival: ambulatory Limitations: no limitations - History of Present Illness Initial comments: Patient is a 32-year-old female presented ER with chief complaint of sinus pressure. Patient is going on for the past couple of days. Patient states she also has been having bilateral ear pain/pressure. Patient denies any cough, shortness of breath, chest pain, fevers, chills, night sweats. - Related Data Home Medications Medication Instructions Recorded Confirmed Iron 18 mg PO HS 02/13/19 01/25/23 Pnv No.95/Ferrous Fum/Folic AC 1 each PO HS 02/13/19 01/25/23 [ Multivitamin Tablet] Levothyroxine Sodium 100 mcg PO DAILY 01/25/23 01/25/23 Allergies Allergy/AdvReac Type Severity Reaction Status Date / Time No Known Allergies Allergy Verified 02/09/23 12:36 Review of Systems ROS Statement: Those systems with pertinent positive or pertinent negative responses have been documented in the HPI. ROS Other: All systems not noted in ROS Statement are negative. Past Medical History Past Medical History: Hypertension Additional Past Medical History / Comment(s): Anemia History of Any Multi-Drug Resistant Organisms: None Reported Additional Past Surgical History / Comment(s): [place] teeth removal Past Anesthesia/Blood Transfusion Reactions: No Reported Reaction Past Psychological History: No Psychological Hx Reported Smoking Status: Never smoker Past Alcohol Use History: None Reported Past Drug Use History: None Reported - Past Family History Mother Family Medical History: Chest Pain / Angina, CVA/TIA, Diabetes Mellitus, Hyperlipidemia, Hypertension, Renal Disease General Exam Limitations: no limitations General appearance: alert, in no apparent distress Head exam: Present: atraumatic, normocephalic, normal inspection Eye exam: Present: normal appearance, PERRL, EOMI. Absent: scleral icterus, conjunctival injection, periorbital swelling ENT exam: Present: normal exam, mucous membranes moist Respiratory exam: Present: normal lung sounds bilaterally. Absent: respiratory distress, wheezes, rales, rhonchi, stridor Cardiovascular Exam: Present: regular rate, normal rhythm, normal heart sounds. Absent: systolic murmur, diastolic murmur, rubs, gallop, clicks Neurological exam: Present: alert, oriented X3, CN II-XII intact Psychiatric exam: Present: normal affect, normal mood Skin exam: Present: warm, dry, intact, normal color. Absent: rash Course Vital Signs 02/09/23 12:34 Temperature 98.4 F Pulse Rate 96 Respiratory 20 Rate Blood Pressure 181/108 O2 Sat by Pulse 99 Oximetry Medical Decision Making - Medical Decision Making Was pt. sent in by a medical professional or institution ([facility], [employer], urgent care, hospital, or long-term...) When possible be specific @ -No Did you speak to anyone other than the patient for history (EMS, parent, family, police, friend...)? What history was obtained from this source @ -No Did you review nursing and triage notes (agree or disagree)? Why? @ -I reviewed and agree with nursing and triage notes Were old charts reviewed (outside hosp., previous admission, EMS record, old EKG, old radiological studies, urgent care reports/EKG's, long-term records)? Report findings @ -No old charts were reviewed Differential Diagnosis (chest pain, altered mental status, abdominal pain women, abdominal pain men, vaginal bleeding, weakness, fever, dyspnea, syncope, headache, dizziness, GI bleed, back pain, seizure, CVA, palpatations, mental he alth, musculoskeletal)? @ -Viral sinusitis, bacterial sinusitis, COVID-19, influenza, RSV EKG interpreted by me (3pts min.). @ -None X-rays interpreted by me (1pt min.). @ -None done CT interpreted by me (1pt min.). @ -None done U/S interpreted by me (1pt. min.). @ -None done What testing was considered but not performed or refused? (CT, X-rays, U/S, labs)? Why? @ -None What meds were considered but not given or refused? Why? @ -None Did you discuss the management of the patient with other professionals (professionals i.e. [facility]es, [employer], lab, RT, psych nurse, social service manager, semiconductor wafers saw operator, teacher, aerospace engineer officer armament, oil field caser)? Give summary @ -No Was smoking cessation discussed for >3mins.? @ -No Was critical care preformed (if so, how long)? @ -No Were there social determinants of health that impacted care today? How? (Homelessness, low income, unemployed, alcoholism, drug addiction, transportation, low edu. Level, literacy, decrease access to med. care, detention, rehab)? @ -No Was there de-escalation of care discussed even if they declined (Discuss DNR or withdrawal of care, Hospice)? DNR status @ -No What co-morbidities impacted this encounter? (DM, HTN, Smoking, COPD, CAD, Cancer, CVA, ARF, Chemo, Hep., AIDS, mental health diagnosis, sleep apnea, morbid obesity)? @ -None Was patient admitted / discharged? Hospital course, mention meds given and route, prescriptions, significant lab abnormalities, going to OR and other pertinent info. @ -Discharge. Upon examination patient's vitals were stable. Patient had mild tenderness to maxillary sinuses. Viral swabs obtained in the ER were all negative. I discussed with the patient that antibiotics are not needed at this time due to the timeframe of her symptoms. I instructed her to take [id number] Tylenol Motrin and perform was lavaged for symptoms. I discussed return parameters. Patient was discharged home in stable condition with follow-up to PCP. Patient exposed agreement and understanding of care plan. Undiagnosed new problem with uncertain prognosis? @ -No Drug Therapy requiring intensive monitoring for toxicity (Heparin, Nitro, Insulin, Cardizem)? @ -No Were any procedures done? @ -No Diagnosis/symptom? @ -Viral sinusitis Acute, or Chronic, or Acute on Chronic? @ -Acute Uncomplicated (without systemic symptoms) or Complicated (systemic symptoms)? @ -Uncomplicated Side effects of treatment? @ -No Exacerbation, Progression, or Severe Exacerbation? @ -No Poses a threat to life or bodily function? How? (Chest pain, [place], [place], pneumonia, PE, COPD, DKA, ARF, appy, cholecystitis, CVA, Diverticulitis, Homicidal, Suicidal, threat to staff... and all critical care pts) @ -No - Lab Data Lab Results 02/09/23 Range/Units 13:39 Influenza Type A (PCR) Not Detected (Not Detectd) Influenza Type B (PCR) Not Detected (Not Detectd) RSV (PCR) Not Detected (Not Detectd) SARS-CoV-2 (PCR) Not Detected (Not Detectd) Disposition Clinical Impression: Viral sinusitis Disposition: HOME SELF-CARE Condition: Stable Additional Instructions: Please return to the Emergency Department if symptoms worsen or any other concerns. Is patient prescribed a controlled substance at d/c from ED?: No Referrals: Nixon Hastings MD [Primary Care Provider] - 1-2 days Time of Disposition: 15:49
[2023-02-09 16:19] VITALS: BP 116/70; PULSE 76; RESP 18; TEMP 97.9
== END 2023-02-09 16:10 | disposition home or self-care (01) ==
LOC: EC 12:24
DX: J32.0 Chronic maxillary sinusitis (principal); B97.89 Other viral agents as the cause of diseases classified elsewhere; I10 Essential (primary) hypertension; Z20.822 Contact with and (suspected) exposure to COVID-19
CPT/HCPCS: 87636; 99283

== ENCOUNTER → 2023-04-24 | Outpatient (CLI) | payer OTHER ==
[2023-04-24 16:05] LABS: Basophils # (A) 0.04 X 10*3/uL (0.00-0.10); Basophils % (A) 0.5 %; Eosinophils # (A) 0.18 X 10*3/uL (0.04-0.35); Eosinophils % (A) 2.3 %; HCT 37.3 % (37.2-46.3); HGB 11.1 g/dL (12.0-15.0); Lymphocytes # (A) 3.09 X 10*3/uL (0.90-5.00); Lymphocytes % (A) 39.2 %; MCH 18.8 pg (27.0-32.0); MCHC 29.8 g/dL (32.0-37.0); MCV 63.3 FL (80.0-97.0); Mean Platelet Volume 10.3 FL (9.5-12.2); Monocytes # (A) 0.55 X 10*3/uL (0.20-1.00); NRBC Per 100 WBC 0 X 10*3/uL (0.00-0.01); Neutrophils % (A) 50.6 %; Platelet Count 334 X 10*3/uL (140-440); RBC 5.89 X 10*6/uL (4.10-5.20); WBC 7.89 X 10*3/uL (4.50-10.00)
[2023-04-24 21:21] LABS: T4, Free (Free Thyroxine) 1.3 ng/dL (0.80-1.80)
== END | disposition home or self-care (01) ==
LOC: LABWHC1 12:57
PROVIDERS: ATTEND Nurse Practitioner
DX: I10 Essential (primary) hypertension (principal); E55.9 Vitamin D deficiency, unspecified; E03.9 Hypothyroidism, unspecified
CPT/HCPCS: 36415; 82306; 82308; 82607; 84439; 84443; 84480; 85025

== ENCOUNTER → 2023-06-19 | Outpatient (CLI) | payer OTHER ==
[2023-06-20 02:40] LABS: T4, Free (Free Thyroxine) 1.23 ng/dL (0.80-1.80)
== END | disposition home or self-care (01) ==
LOC: LABWHC1 15:02
PROVIDERS: ATTEND Internal Medicine Endocrinology, Diabetes & Metabolism
DX: E03.9 Hypothyroidism, unspecified (principal)
CPT/HCPCS: 36415; 82306; 84439; 84443; 84480

== ENCOUNTER → 2023-08-24 | Outpatient (CLI) | payer OTHER ==
[2023-08-24 19:42] LABS: T4, Free (Free Thyroxine) 1.32 ng/dL (0.80-1.80)
== END | disposition home or self-care (01) ==
LOC: LABWHC1 15:25
PROVIDERS: ATTEND Internal Medicine Endocrinology, Diabetes & Metabolism
DX: E03.9 Hypothyroidism, unspecified (principal)
CPT/HCPCS: 36415; 82306; 83036; 84439; 84443; 84480

== ENCOUNTER → 2023-12-15 | Outpatient (CLI) | payer OTHER ==
[2023-12-16 02:58] LABS: Chol/HDL Ratio 3.98 Ratio
[2023-12-16 02:59] LABS: LDL Cholesterol,Calculated 69.3 mg/dL (0.0-131.0); T4, Free (Free Thyroxine) 1.09 ng/dL (0.80-1.80)
[2023-12-16 03:21] LABS: HGB 11.5 g/dL (12.0-15.0); MCH 18.5 pg (27.0-32.0); MCHC 29.5 g/dL (32.0-37.0); MCV 62.8 FL (80.0-97.0); Mean Platelet Volume 10.3 FL (9.5-12.2); NRBC Per 100 WBC 0 X 10*3/uL (0.00-0.01); Platelet Count 325 X 10*3/uL (140-440); RBC 6.21 X 10*6/uL (4.10-5.20); RDW 16.6 % (11.5-14.5); WBC 8.17 X 10*3/uL (4.50-10.00)
[2023-12-16 04:01] LABS: Basophils # (A) 0.06 X 10*3/uL (0.00-0.10); Basophils % (A) 0.7 %; Eosinophils # (A) 0.24 X 10*3/uL (0.04-0.35); Eosinophils % (A) 2.9 %; Lymphocytes # (A) 2.75 X 10*3/uL (0.90-5.00); Lymphocytes % (A) 33.7 %; Microcytosis (M) 3+; Monocytes # (A) 0.71 X 10*3/uL (0.20-1.00); Monocytes % (A) 8.7 %; Neutrophils # (A) 4.39 X 10*3/uL (1.80-7.70); Neutrophils % (A) 53.8 %
== END | disposition home or self-care (01) ==
LOC: LABWHC1 15:25
PROVIDERS: ATTEND Internal Medicine Endocrinology, Diabetes & Metabolism
DX: O99.280 Endocrine, nutritional and metabolic diseases complicating pregnancy, unspecified trimester
CPT/HCPCS: 36415; 80061; 82306; 83036; 84439; 84443; 84480; 85025

== ENCOUNTER → 2024-03-05 | Outpatient (CLI) | payer OTHER ==
[2024-03-06 02:25] LABS: Chol/HDL Ratio 3.59 Ratio; T4, Free (Free Thyroxine) 1.02 ng/dL (0.80-1.80)
== END | disposition home or self-care (01) ==
LOC: LABWHC1 16:10
PROVIDERS: ATTEND Internal Medicine Endocrinology, Diabetes & Metabolism
DX: E03.9 Hypothyroidism, unspecified (principal)
CPT/HCPCS: 36415; 80061; 82306; 83036; 84439; 84443; 84480

== ENCOUNTER → 2024-05-27 | Outpatient (CLI) | payer OTHER ==
[2024-05-27 21:16] LABS: Basophils # (A) 0.04 X 10*3/uL (0.00-0.10); Basophils % (A) 0.5 %; Eosinophils # (A) 0.17 X 10*3/uL (0.04-0.35); Eosinophils % (A) 2.1 %; HCT 39.5 % (37.2-46.3); HGB 11.7 g/dL (12.0-15.0); Lymphocytes # (A) 3.17 X 10*3/uL (0.90-5.00); Lymphocytes % (A) 39.3 %; MCH 18.4 pg (27.0-32.0); MCHC 29.6 g/dL (32.0-37.0); MCV 62.1 FL (80.0-97.0); Mean Platelet Volume 10.5 FL (9.5-12.2); Monocytes # (A) 0.54 X 10*3/uL (0.20-1.00); Monocytes % (A) 6.7 %; NRBC Per 100 WBC 0 X 10*3/uL (0.00-0.01); Neutrophils # (A) 4.11 X 10*3/uL (1.80-7.70); Neutrophils % (A) 50.9 %; Platelet Count 456 X 10*3/uL (140-440); RBC 6.36 X 10*6/uL (4.10-5.20); RDW 16.8 % (11.5-14.5); WBC 8.07 X 10*3/uL (4.50-10.00)
[2024-05-27 21:25] LABS: Microalbumin Creatinine Ratio <30 mg/g Cr (0-30); Urine Creatinine 39.4 mg/dL (28.0-217.0)
[2024-05-27 21:41] LABS: Chol/HDL Ratio 4.25 Ratio; LDL Cholesterol,Calculated 83.2 mg/dL (0.0-131.0)
[2024-05-27 21:42] LABS: ALT 18 U/L (8-44); AST 20 U/L (13-35); Albumin 4.6 g/dL (3.8-4.9); Albumin/Globulin Ratio 1.35 Ratio (1.60-3.17); Alkaline Phosphatase 75 U/L (41-126); BUN/Creat Ratio 17.43 Ratio (12.00-20.00); Blood Urea Nitrogen 12.2 mg/dL (9.0-27.0); Calcium 9.5 mg/dL (8.7-10.3); Carbon Dioxide 24.8 mmol/L (21.6-31.8); Chloride 105 mmol/L (96-109); Globulin 3.4 g/dL (1.6-3.3); Glucose 96 mg/dL (70-110); Potassium 4.1 mmol/L (3.5-5.5); Sodium 141 mmol/L (135-145); T4, Free (Free Thyroxine) 1.34 ng/dL (0.80-1.80); Total Bilirubin 0.3 mg/dL (0.3-1.2)
== END | disposition home or self-care (01) ==
LOC: LABWHC1 15:36
PROVIDERS: ATTEND Internal Medicine Endocrinology, Diabetes & Metabolism
DX: E03.9 Hypothyroidism, unspecified (principal)
CPT/HCPCS: 36415; 80053; 80061; 82043; 82306; 82570; 82728; 83036; 84439; 84443; 84480; 85025

== ENCOUNTER → 2024-06-26 | Outpatient (CLI) | payer OTHER ==
[2024-06-26 18:08] LABS: HCT 36.7 % (37.2-46.3); HGB 11.1 g/dL (12.0-15.0); MCH 18.9 pg (27.0-32.0); MCHC 30.2 g/dL (32.0-37.0); MCV 62.4 FL (80.0-97.0); Mean Platelet Volume 10.2 FL (9.5-12.2); NRBC Per 100 WBC 0 X 10*3/uL (0.00-0.01); Platelet Count 388 X 10*3/uL (140-440); RBC 5.88 X 10*6/uL (4.10-5.20); RDW 16.8 % (11.5-14.5); WBC 7.78 X 10*3/uL (4.50-10.00)
[2024-06-26 18:41] LABS: % Iron Saturation 16.4 (12.00-45.00)
[2024-06-26 19:13] LABS: Basophils # (A) 0.05 X 10*3/uL (0.00-0.10); Basophils % (A) 0.6 %; Elliptocytes 2+ (None Seen); Eosinophils # (A) 0.14 X 10*3/uL (0.04-0.35); Eosinophils % (A) 1.8 %; Lymphocytes # (A) 3.29 X 10*3/uL (0.90-5.00); Lymphocytes % (A) 42.3 %; Microcytosis (M) 2+ (None Seen); Monocytes # (A) 0.66 X 10*3/uL (0.20-1.00); Monocytes % (A) 8.5 %; Neutrophils # (A) 3.63 X 10*3/uL (1.80-7.70); Neutrophils % (A) 46.7 %
== END | disposition home or self-care (01) ==
LOC: LABWHC1 15:32
PROVIDERS: ATTEND Family Medicine
DX: D64.9 Anemia, unspecified (principal)
CPT/HCPCS: 36415; 82607; 82728; 82746; 83540; 83550; 85025